=== PATIENT | male | born 1985 | race Caucasian/White ===

== ENCOUNTER 2017-03-31 13:28 | Emergency (ER) | payer BC, OTHER ==
[~2017-03-31] VITALS: Ht 175.3 cm; Wt 73.1 kg
[~2017-03-31 13:28] MED LIST: VITAMINS; ZFRODT4 SL
[2017-03-31 13:31] VITALS: Ht 175.3 cm; Wt 73.1 kg
[2017-03-31] MEDS ORDERED: SODIUM CHLORIDE 0.9% 1000ML 2,000 ML IV ONE (13:45)
[2017-03-31] MEDS ORDERED: ONDANSETRON INJ 2 MG/ML 2 ML VIAL IV PRN (13:45)
--- NOTE | 2017-03-31 13:45 | EMERGENCY ROOM VISIT NOTE ---
History Report prepared by César: Marsha Vasquez Under the Supervision of: Dr. Marco Fritz M.D. First contact with patient: 13:38 Chief Complaint: VOMITING Stated Complaint: VOMITING, DIARRHEA, DEHYDRATION, POSS. FOOD POISON History of Present Illness The patient is a 31 year old male who presents to the Emergency Room with complaints of multiple episodes of vomiting beginning at 10pm last night. He states that he eat [employer] pizza last night. He was the only one to eat the chicken [place] type and since has been experiencing nausea, vomiting and diarrhea. He is the only one to be experiencing these symptoms. The patient denies exposure to illness. He notes that he has been able to sip on a small amount of water throughout the day. The patient did start new medication for his arthritis one month ago, but denies any complications with adjusting. He denies a history of C. Diff. Source of History: patient Onset: 10pm last night Position: other (global) Symptom Intensity: multiple Quality: other (vomiting) Timing: other (episodes) Associated Symptoms: + diarrhea, + nausea Note: He denies exposure to illness. Review of Systems All systems have been listed, reviewed, and are negative other than those previously mentioned. Please see Additional Medical History Sheet. Past Medical & Surgical Medical Problems: (1) Arthritis Family History Cancer Diabetes mellitus Hypertension Kidney disease Kidney stones Lung disease Social History Smoking Status: Never Smoker Smokeless Tobacco Use: No Alcohol Use: occasionally Marital Status: Housing Status: lives with family Occupation Status: employed Current/Historical Medications Scheduled Apremilast (Otezla), 1 TAB PO BID Multiple Vitamin (Multivitamin), 1 TAB PO DAILY Sertraline Hcl (Zoloft), 100 MG PO DAILY Scheduled PRN Ondasetron Odt (Zofran Odt), 4 MG SL Q4 PRN for nausea Allergies Coded Allergies: No Known Allergies (Unverified , 03/31/17) Physical Exam Vital Signs Date Time Temp Pulse Resp B/P Pulse Ox O2 Delivery O2 Flow Rate FiO2 03/31/17 16:19 37.2 88 18 117/74 98 03/31/17 13:31 37.2 110 18 117/74 98 Room Air Physical Exam GENERAL: Patient awake, alert, oriented x 3. Patient follows commands. Patient does not appear toxic. Patient is adequately hydrated and well- nourished. SKIN: No erythema, pallor, cyanosis or rash HEENT: Normal head, pupils equal, reactive to light and accommodation. LUNGS: Clear to auscultation. No wheezes, no rales, no rhonchi. HEART: No murmurs. No gallops. No rubs ABDOMEN: Generalized tenderness. No masses, no rebound, no hepatomegaly or splenomegaly. EXTREMITIES: No signs of trauma. No pedal or pretibial edema. No calf or thigh tenderness. NEUROLOGIC: Cranial nerves II-XII within normal limits. No gross motor sensory function deficits. Medical Decision & Procedures Laboratory Results 03/31/17 13:40 Red Blood Count 5.18, Mean Corpuscular Volume 87.1, Mean Corpuscular Hemoglobin 31.3, Mean Corpuscular Hemoglobin Concent 35.9, Mean Platelet Volume 9.7, Neutrophils (%) (Auto) 83.6, Lymphocytes (%) (Auto) 5.3, Monocytes (%) (Auto) 10.2, Eosinophils (%) (Auto) 0.7, Basophils (%) (Auto) 0.1, Neutrophils # (Auto ) 5.63, Lymphocytes # (Auto) 0.36, Monocytes # (Auto) 0.69, Eosinophils # (Auto ) 0.05, Basophils # (Auto) 0.01 03/31/17 13:40 Test 03/31/17 13:40 03/31/17 15:44 White Blood Count 6.75 K/uL (4.8-10.8) Red Blood Count 5.18 M/uL (4.7-6.1) Hemoglobin 16.2 g/dL (14.0-18.0) Hematocrit 45.1 % (42-52) Mean Corpuscular Volume 87.1 fL (80-100) Mean Corpuscular Hemoglobin 31.3 pg (25-34) Mean Corpuscular Hemoglobin Concent 35.9 g/dl (32-36) Platelet Count 204 K/uL (130-400) Mean Platelet Volume 9.7 fL (7.4-10.4) Neutrophils (%) (Auto) 83.6 % Lymphocytes (%) (Auto) 5.3 % Monocytes (%) (Auto) 10.2 % Eosinophils (%) (Auto) 0.7 % Basophils (%) (Auto) 0.1 % Neutrophils # (Auto) 5.63 K/uL (1.4-6.5) Lymphocytes # (Auto) 0.36 K/uL (1.2-3.4) Monocytes # (Auto) 0.69 K/uL (0.11-0.59) Eosinophils # (Auto) 0.05 K/uL (0-0.5) Basophils # (Auto) 0.01 K/uL (0-0.2) RDW Standard Deviation 39.2 fL (36.4-46.3) RDW Coefficient of Variation 12.2 % (11.5-14.5) Immature Granulocyte % (Auto) 0.1 % Immature Granulocyte # (Auto) 0.01 K/uL (0.00-0.02) Anion Gap 8.0 mmol/L (3-11) Est Creatinine Clear Calc Drug Dose 117.5 ml/min Estimated GFR () 128.9 Estimated GFR (Non- 111.2 BUN/Creatinine Ratio 19.9 (10-20) Calcium Level 9.4 mg/dl (8.5-10.1) Total Bilirubin 0.7 mg/dl (0.2-1) Aspartate Amino Transf (AST/SGOT) 15 U/L (15-37) Alanine Aminotransferase (ALT/SGPT) 22 U/L (12-78) Alkaline Phosphatase 67 U/L (45-117) Total Protein 7.9 gm/dl (6.4-8.2) Albumin 4.3 gm/dl (3.4-5.0) Globulin 3.6 gm/dl (2.5-4.0) Albumin/Globulin Ratio 1.2 (0.9-2) Lipase 128 U/L (73-393) Urine Color YELLOW Urine Appearance CLEAR (CLEAR) Urine pH 6.0 (4.5-7.5) Urine Specific [place] 1.019 (1.000-1.030) Urine Protein NEG (NEG) Urine Glucose (UA) NEG (NEG) Urine Ketones 1+ (NEG) Urine Occult Blood NEG (NEG) Urine Nitrite NEG (NEG) Urine Bilirubin NEG (NEG) Urine Urobilinogen NEG (NEG) Urine Leukocyte Esterase NEG (NEG) Laboratory results as stated above per my review. Medications Administered Medications (Trade) Dose Ordered Sig/N[place] Route Start Time Stop Time Status Last Admin Dose Admin Ondansetron HCl 4 mg 4 mg Q1HWA PRN IV 03/31/17 13:45 03/31/17 16:35 DC 03/31/17 13:49 4 MG Sodium Chloride (Nss 1000ml) 2,000 ml @ 1,000 mls/hr Q2H ONCE IV 03/31/17 13:45 03/31/17 15:44 DC 03/31/17 13:48 1,000 MLS/HR ED Course 1338: Past medical records reviewed. The patient was evaluated in room B12. A complete history and physical examination was performed. 1345: Sodium Chloride 2,000 ml @ 1,000 mls/hr IV, Zofran Inj 4 mg IV. 1601: I reevaluated the patient and he is resting comfortably. 1620: Upon reevaluation, the patient appeared to have improvement of his symptoms. I discussed today's findings with him. He verbalized agreement of the treatment plan. He was discharged home. Medical Decision Nurses notes reviewed. Medical history sheet reviewed. Differential diagnosis includes but is not limited to: nausea, vomiting, diarrhea, dehydration, metabolic abnormalities, food poisoning, gastroenteritis. Multiple labs and urinalysis were evaluated. Please see above. The patient has 1+ ketones in his urine. The patient improved remarkably with IV fluids and Zofran. The patient was unable to provide a stool specimen. The patient will be given a prescription for Zofran. He was encouraged to push fluids. Most likely has a viral cause for his symptoms. Impression Primary Impression: Acute gastroenteritis Scribe Attestation The scribe's documentation has been prepared under my direction and personally reviewed by me in its entirety. I confirm that the note above accurately reflects all work, treatment, procedures, and medical decision making performed by me. Departure Information Dispostion Home / Self-Care Prescriptions Ondasetron Odt (ZOFRAN ODT) 4 Mg Tab 4 MG SL Q4 Y for nausea, #10 TAB Prov: Marco Fritz M.D. 03/31/17 Referrals No Doctor, Assigned (PCP) Forms HOME CARE DOCUMENTATION FORM, IMPORTANT VISIT INFORMATION Patient Instructions My [facility] Additional Instructions 1 Zofran every 4 hours as needed for nausea. Drink at least 4 quarts of liquid over the next 24 hours. Return here if you're unable to hold down liquids. You may bring in a stool specimen if you continue to have lots of diarrhea.
[2017-03-31] MEDS ORDERED: SERT100T PO (13:55)
[2017-03-31] MEDS ORDERED: MULTTAB58 PO (13:55)
[2017-03-31] MEDS ORDERED: APRE1TAB3 PO (13:55)
[2017-03-31 13:58] LABS: BASO % 0.1 %; BASO ABS # 0.01 K/uL (0-0.2); COMPLETE YES; EOS % 0.7 %; HEMATOCRIT 45.1 % (42-52); IG% 0.1 %; LYMPH % 5.3 %; LYMPH ABS # 0.36 K/uL (1.2-3.4); MEAN CELL VOLUME 87.1 fL (80-100); MEAN CORPUSCULAR HEMOGLOBIN 31.3 pg (25-34); MEAN CORPUSCULAR HGB CONC 35.9 g/dl (32-36); MEAN PLATELET VOLUME 9.7 fL (7.4-10.4); MONO % 10.2 %; NEUT % 83.6 %; PLATELET COUNT 204 K/uL (130-400); RED BLOOD COUNT 5.18 M/uL (4.7-6.1); WHITE BLOOD COUNT 6.75 K/uL (4.8-10.8)
[2017-03-31 14:15] LABS: BUN/CREATININE RATIO 19.9 (10-20); CALCIUM 9.4 mg/dl (8.5-10.1); CREATININE 0.92 mg/dl (0.60-1.40); POTASSIUM 4.2 mmol/L (3.5-5.1)
[2017-03-31 14:18] LABS: ALB/GLOB RATIO 1.2 (0.9-2)
[2017-03-31 16:05] LABS: URINE APPEARANCE CLEAR (CLEAR); URINE BILIRUBIN NEG (NEG); URINE COLOR YELLOW; URINE NITRITE NEG (NEG); URINE SPECIFIC GRAVITY 1.019 (1.000-1.030); UROBILINOGEN NEG (NEG); ZZUR CULT IF INDIC CLEAN CATCH NO
[2017-03-31 16:11] LABS: MANUAL MICROSCOPIC REQUIRED? NO; REVIEW REQ? NO
[2017-03-31] MEDS ORDERED: ONDA4TAB10 SL (16:15)
[2017-03-31 16:19] VITALS: BP 117/74; PULSE 88; TEMP 37.2; O2SAT 98
== END 2017-03-31 16:20 | disposition home or self-care (01) ==
LOC: C.EDB 13:30
DX: K52.89 Other specified noninfective gastroenteritis and colitis (principal); M19.90 Unspecified osteoarthritis, unspecified site; Z83.3 Family history of diabetes mellitus; Z82.49 Family history of ischemic heart disease and other diseases of the circulatory system; Z84.1 Family history of disorders of kidney and ureter